=== PATIENT | female | born 1955 | race Caucasian/White ===

== ENCOUNTER 2023-06-04 14:34 | Observation (INO) | payer OTHER ==
[2023-06-04 16:47] LABS: EPI CELLS 1 /uL (0-25.1); HYALINE CASTS 0 /uL (0-3.1); PH,URINE 6.5 (5.0-8.0); URINE APPEARANCE CLOUDY; URINE BACTERIA 81 /uL (0-1359); URINE BILIRUBIN NEGATIVE (NEGATIVE); URINE COLOR YELLOW; URINE GLUCOSE (UA) NEGATIVE (NEGATIVE); URINE KETONE NEGATIVE (NEGATIVE); URINE LEUK ESTERASE 3+ (NEGATIVE); URINE NITRITE NEGATIVE (NEGATIVE); URINE PROTEIN 1+ (NEGATIVE); URINE RBC 79 /uL (0-23.9); URINE WBC 3306 /uL (0-25.8)
[2023-06-04] MEDS ORDERED: HALOPERIDOL LACTATE 5 MG/ML ONE (16:58)
[2023-06-04] MEDS: HALOPERIDOL LACTATE 5 MG/ML IM ONE (17:04)
[2023-06-04 17:42] LABS: BASO % 0.3 % (0-2.0); EOS % 0.1 % (0-4.5); HEMATOCRIT 38.2 % (32.4-45.2); LYMPH % 14.4 % (8-40); MEAN CELL VOLUME 88.2 fl (80-96); MEAN PLT VOLUME 8.7 fl (7.5-11.1); MONO % 7.7 % (3.8-10.2); NEUT % 77.5 % (42.8-82.8); PLATELET COUNT 270 10^3/uL (134-434); RBC 4.33 M/mm3 (3.60-5.2); RDW 13.8 % (11.6-15.6)
[2023-06-04 18:00] LABS: INR 1.24 (0.83-1.09); PROTHROMBIN TIME (PATIENT) 14.3 SEC (9.7-13.0)
[2023-06-04 18:02] LABS: ACTIVATED PTT 29.7 SECONDS (25.2-36.5)
[2023-06-04 18:02] LABS: CHLORIDE 102 mmol/L (98-107); SODIUM 140 mmol/L (136-145)
[2023-06-04 18:04] LABS: ALBUMIN 3.3 g/dl (3.4-5.0); BLOOD UREA NITROGEN 16.8 mg/dL (7-18); CALCIUM 9.2 mg/dL (8.5-10.1); CO2 31 mmol/L (21-32); MAGNESIUM 2.1 mg/dL (1.8-2.4)
[2023-06-04 18:07] LABS: CREATININE 0.9 mg/dL (0.55-1.3); PHOSPHOROUS 2.5 mg/dL (2.5-4.9); SGPT/ALT 19 U/L (13-61)
[2023-06-04 18:08] LABS: SGOT/AST 15 U/L (15-37)
[2023-06-04 18:09] LABS: BILIRUBIN,TOTAL 0.8 mg/dL (0.2-1); TOT PROT 7.5 g/dl (6.4-8.2)
[2023-06-04 18:10] LABS: ALK PHOS 105 U/L (45-117)
[2023-06-04 18:12] LABS: ANION GAP 8 mmol/L (4-13); GLUCOSE,RANDOM 145 mg/dL (74-106); POTASSIUM 2.9 mmol/L (3.5-5.1)
[2023-06-04] MEDS ORDERED: ACETAMINOPHEN INJECTION 100 ML IVPB ONE (19:10)
[2023-06-04] MEDS ORDERED: CEFTRIAXONE 1 GM/50 ML BAG ONE (19:11)
[2023-06-04] MEDS: ACETAMINOPHEN 1000 MG/100 ML BAG IVPB ONE (19:16)
[2023-06-04] MEDS: POTASSIUM CHLORIDE TABS 20 MEQ TABLET.ER (FP) PO ONE (19:23)
[2023-06-04] MEDS ORDERED: KCL 10 MEQ IVPB 10 MEQ/100 ML INFUS.BAG IVPB ONE (19:55)
[2023-06-04] MEDS ORDERED: POTASSIUM CHLORIDE ORAL LIQUID 20 MEQ/15 ML ONE (19:55)
[2023-06-04] MEDS: POTASSIUM CHLORIDE ORAL LIQUID 20 MEQ/15 ML PO ONE (20:20)
[2023-06-04] MEDS: KCL 20 MEQ PREMIX BAG 20 MEQ/100 ML INFUS.BAG IVPB SCH (20:20)
[2023-06-04] MEDS: ACETAMINOPHEN 325 MG TABLET (FP) PO PRN (23:37)
[2023-06-05 02:13] VITALS: BMI 30.4
[2023-06-05 07:55] LABS: BASO % 0.4 % (0-2.0); EOS % 0.2 % (0-4.5); HEMATOCRIT 37.4 % (32.4-45.2); HEMOGLOBIN 12.5 GM/dL (10.7-15.3); LYMPH % 19.1 % (8-40); MCH 29.7 pg (25.7-33.7); MCHC 33.4 g/dl (32.0-36.0); MEAN CELL VOLUME 88.9 fl (80-96); MEAN PLT VOLUME 9.3 fl (7.5-11.1); MONO % 10.3 % (3.8-10.2); PLATELET COUNT 268 10^3/uL (134-434); RBC 4.21 M/mm3 (3.60-5.2); RDW 13.8 % (11.6-15.6); WHITE BLOOD COUNT 14.3 K/mm3 (4.0-10.0)
[2023-06-05 08:14] LABS: POTASSIUM 3.6 mmol/L (3.5-5.1)
[2023-06-05 08:17] LABS: ALBUMIN 2.9 g/dl (3.4-5.0); BLOOD UREA NITROGEN 16.1 mg/dL (7-18); CALCIUM 8.6 mg/dL (8.5-10.1)
[2023-06-05 08:20] LABS: CREATININE 0.8 mg/dL (0.55-1.3)
[2023-06-05 08:22] LABS: BILIRUBIN,TOTAL 0.9 mg/dL (0.2-1); TOT PROT 7.3 g/dl (6.4-8.2)
[2023-06-05] MEDS: POTASSIUM CHLORIDE TABS 20 MEQ TABLET.ER (FP) PO SCH (09:47)
[2023-06-05] MEDS: HEPARIN NA (PORCINE) 5,000 UNITS/ML 1ML VIAL SQ SCH (09:47)
[2023-06-05 14:09] VITALS: RESP 18
[2023-06-05] MEDS ORDERED: PATIENT'S OWN MEDICATION (NON-FORMULARY) (Memantine Hcl [Namenda Xr] 14 MG Cap.Spr.24) PO SCH (14:45)
[2023-06-05] MEDS: CEFTRIAXONE 1 GM in DEXTROSE 5%-WATER - 50 ML IVPB ONE (15:15)
[2023-06-05] MEDS: HYDROCHLOROTHIAZIDE 12.5 MG CAPSULE (FP) PO SCH (15:15)
[2023-06-05] MEDS: SERTRALINE HCL 50 MG TABLET (FP) PO SCH (15:16)
[2023-06-05] MEDS: SODIUM CHLORIDE 1,000 ML IV SCH (15:16)
[2023-06-05] MEDS: BICTEGRAV/EMTRICIT/TENOFOV (BIKTARVY) 50-200-25 MG TABLET PO SCH (15:18)
[2023-06-05] MEDS: DONEPEZIL HCL 10 MG TABLET (FP) PO SCH (22:04)
[2023-06-05] MEDS: MEMANTINE HCL 5 MG TABLET (UD) PO SCH (22:04)
[2023-06-05] MEDS: MELATONIN 5 MG TABLETS PO SCH (22:04)
[2023-06-06] MEDS: CEFTRIAXONE 1 GM in DEXTROSE 5%-WATER - 50 ML IVPB SCH (09:21)
[2023-06-06 11:14] LABS: BASO % 0.3 % (0-2.0); EOS % 0.1 % (0-4.5); HEMATOCRIT 36.4 % (32.4-45.2); HEMOGLOBIN 11.9 GM/dL (10.7-15.3); MCH 29.3 pg (25.7-33.7); MCHC 32.8 g/dl (32.0-36.0); MEAN CELL VOLUME 89.3 fl (80-96); MEAN PLT VOLUME 8.8 fl (7.5-11.1); MONO % 7.5 % (3.8-10.2); NEUT % 75.1 % (42.8-82.8); PLATELET COUNT 288 10^3/uL (134-434); RBC 4.07 M/mm3 (3.60-5.2); WHITE BLOOD COUNT 11.4 K/mm3 (4.0-10.0)
[2023-06-06 11:42] LABS: POTASSIUM 3.4 mmol/L (3.5-5.1)
[2023-06-06 11:44] LABS: CALCIUM 8.8 mg/dL (8.5-10.1)
[2023-06-06 11:45] LABS: ALBUMIN 2.7 g/dl (3.4-5.0); BLOOD UREA NITROGEN 19.3 mg/dL (7-18)
[2023-06-06 11:48] LABS: CREATININE 0.7 mg/dL (0.55-1.3)
[2023-06-06 11:49] LABS: TOT PROT 7.2 g/dl (6.4-8.2)
[2023-06-06 11:50] LABS: BILIRUBIN,TOTAL 0.4 mg/dL (0.2-1)
[2023-06-06] MEDS: MEROPENEM 1 GM in DEXTROSE 5%-WATER 100 ML IVPB SCH (13:56)
[2023-06-06 20:43] VITALS: BP 126/74; PULSE 72; TEMP 97.4
== END 2023-06-06 23:35 ==
LOC: JER 14:34 → JERBED 18:44 → J6S 21:21
PROVIDERS: ADMIT Internal Medicine; ATTEND Internal Medicine
PROC: 05HY33Z Insertion of Infusion Device into Upper Vein, Percutaneous Approach (ICD-10-PCS; principal; 2023-06-04)
PROC: 3E03329 Introduction of Other Anti-infective into Peripheral Vein, Percutaneous Approach (ICD-10-PCS; 2023-06-04)
PROC: 3E013GC Introduction of Other Therapeutic Substance into Subcutaneous Tissue, Percutaneous Approach (ICD-10-PCS; 2023-06-04)
PROC: 3E023GC Introduction of Other Therapeutic Substance into Muscle, Percutaneous Approach (ICD-10-PCS; 2023-06-04)
DX: N39.0 Urinary tract infection, site not specified (principal); E87.6 Hypokalemia; B20 Human immunodeficiency virus [HIV] disease; F03.90 Unspecified dementia, unspecified severity, without behavioral disturbance, psychotic disturbance, mood disturbance, and anxiety; I10 Essential (primary) hypertension; G21.4 Vascular parkinsonism; B96.4 Proteus (mirabilis) (morganii) as the cause of diseases classified elsewhere; W18.39XA Other fall on same level, initial encounter; Y93.89 Activity, other specified; Y92.128 Other place in nursing home as the place of occurrence of the external cause
CPT/HCPCS: 0241U-QW; 36415; 36573; 70450-TC; 71045-TC-FY; 72125-TC; 72170-TC-FY; 73030-TC-LT-FY; 73030-TC-RT-FY; 73502-TC-LT-FY; 73502-TC-RT-FY; 73562-TC-LT-FY; 73562-TC-RT-FY; 80053; 81003; 83735; 84100; 84484; 85025; 85610; 85730; 86850; 86900; 86901; 87040; 87086; 87186; 93005; 93010; 96365; 96372; 96375; 97161-GP; 99285-25; G0378; J0131; J1644